=== PATIENT | male | born 1995 | race Caucasian/White ===

== ENCOUNTER 2022-05-05 12:44 | Emergency (ER) | payer OTHER ==
[2022-05-05 12:55] VITALS: BP 127/86; PULSE 76; RESP 17; TEMP 98.2; BMI 30.2
== END 2022-05-05 13:55 | disposition home or self-care (01) ==
LOC: FER 12:44
DX: L73.2 Hidradenitis suppurativa (principal)
CPT/HCPCS: 99283-25